=== PATIENT | female | born 1980 | race Caucasian/White ===

== ENCOUNTER 2021-01-27 11:14 | Outpatient (CLI) | payer MEDICAID ==
[2021-01-27] MEDS ORDERED: NO HOME MEDS (11:56)
[2021-01-27 12:27] LABS: BASOPHILS # (AUTO) 0.1 X10'3 (0-0.2); MEAN CORPUSCULAR HEMOGLOBIN 27.6 PG (27.0-31.0); MEAN PLATELET VOLUME 8.3 FL (7.4-10.4); MONOCYTES # (AUTO) 0.6 X10'3 (0-0.9); PRE OP PLATELET COUNT 312 X10'3 (140-440); RED CELL DISTRIBUTION WIDTH 14.3 % (11.5-14.5)
[2021-01-27 12:28] LABS: EOSINOPHILS # (AUTO) 0.1 X10'3 (0-0.9); EOSINOPHILS % (AUTO) 0.9 % (0-6); LYMPHOCYTES # (AUTO) 1.9 X10'3 (1.1-4.8); LYMPHOCYTES % (AUTO) 30.7 % (21-51); MEAN CORPUSCULAR HGB CONC 32.8 g/dL (33.0-36.5); MEAN CORPUSCULAR VOLUME 84.2 FL (78-98); MONOCYTES % (AUTO) 9.3 % (2-12); NEUTROPHILS # (AUTO) 3.4 X10'3 (1.8-7.7); NEUTROPHILS % (AUTO) 57.1 % (42-75); PRE OP HEMATOCRIT 39.1 % (35.0-45.0); PRE OP HEMOGLOBIN 12.8 g/dL (12.0-16.0); RED BLOOD COUNT 4.65 X10'6 (4.20-5.60)
[2021-01-27 12:41] LABS: ALBUMIN 4.1 G/DL (3.4-5.0); ALBUMIN/GLOBULIN RATIO 1.2 (1.1-1.5); ALKALINE PHOSPHATASE 57 IU/L (46-116); BLOOD UREA NITROGEN 15 MG/DL (7-18); CALCIUM 8.8 MG/DL (8.5-10.1); CHLORIDE 106 MMOL/L (99-107); CREATININE 0.79 MG/DL (0.40-0.90); PRE OP ALT 24 U/L (30-65); PRE OP ANION GAP 11 (8-16); PRE OP AST 25 U/L (10-37); PRE OP BILIRUB, TOTAL 0.3 MG/DL (0.0-1.0); PRE OP GLUCOSE 96 MG/DL (70-104); PRE OP POTASSIUM 3.7 MMOL/L (3.4-5.1); PRE OP SODIUM 143 MMOL/L (135-145); TOTAL CARBON DIOXIDE 26.2 MMOL/L (24-32); TOTAL PROTEIN 7.4 G/DL (6.4-8.2); eGFR 80 ML/MIN
== END 2021-01-27 23:59 | disposition home or self-care (01) ==
LOC: PRE-OP 11:14 → EDSTATUS 02-03 12:30
PROVIDERS: ATTEND Orthopaedic Surgery
DX: U07.1 COVID-19 (principal)
CPT/HCPCS: 36415; 80053; 85025; U0003; U0005

== ENCOUNTER 2021-07-07 13:21 | Day surgery (SDC) | payer MEDICAID ==
[2021-06-30 12:30] LABS: BASOPHILS # (AUTO) 0.1 X10'3 (0-0.2); EOSINOPHILS # (AUTO) 0.1 X10'3 (0-0.9); LYMPHOCYTES # (AUTO) 1.7 X10'3 (1.1-4.8); MONOCYTES # (AUTO) 0.6 X10'3 (0-0.9); PRE OP HEMATOCRIT 40.5 % (35.0-45.0)
[2021-06-30 12:31] LABS: LYMPHOCYTES % (AUTO) 28.3 % (21-51); MEAN CORPUSCULAR HEMOGLOBIN 26.7 PG (27.0-31.0); MEAN CORPUSCULAR HGB CONC 32.4 g/dL (33.0-36.5); MEAN CORPUSCULAR VOLUME 82.4 FL (78-98); MEAN PLATELET VOLUME 8.7 FL (7.4-10.4); MONOCYTES % (AUTO) 10.1 % (2-12); NEUTROPHILS # (AUTO) 3.5 X10'3 (1.8-7.7); NEUTROPHILS % (AUTO) 58.6 % (42-75); PRE OP HEMOGLOBIN 13.1 g/dL (12.0-16.0); PRE OP PLATELET COUNT 296 X10'3 (140-440); RED BLOOD COUNT 4.92 X10'6 (4.20-5.60); RED CELL DISTRIBUTION WIDTH 15.4 % (11.5-14.5)
[2021-06-30 12:45] LABS: HCG SERUM QL NEGATIVE
[2021-06-30 12:52] LABS: ALBUMIN 4.2 G/DL (3.4-5.0); ALBUMIN/GLOBULIN RATIO 1.3 (1.1-1.5); ALKALINE PHOSPHATASE 67 IU/L (46-116); BLOOD UREA NITROGEN 17 MG/DL (7-18); BUN/CREATININE RATIO 18.7 (6.6-38.0); CALCIUM 9.8 MG/DL (8.5-10.1); CHLORIDE 108 MMOL/L (99-107); CREATININE 0.91 MG/DL (0.40-0.90); PRE OP ALT 21 U/L (30-65); PRE OP ANION GAP 8 (8-16); PRE OP AST 25 U/L (10-37); PRE OP BILIRUB, TOTAL 0.3 MG/DL (0.0-1.0); PRE OP GLUCOSE 80 MG/DL (70-104); PRE OP SODIUM 145 MMOL/L (135-145); TOTAL CARBON DIOXIDE 28.7 MMOL/L (24-32); TOTAL PROTEIN 7.5 G/DL (6.4-8.2); eGFR 68 ML/MIN
[~2021-07-07] VITALS: Ht 167.6 cm; Wt 68.6 kg
[~2021-07-07 13:21] MED LIST: NO HOME MEDS; cefazolin/dext.iso 2gm/100ml 100 ML IV ONE; famotidine 20mg tablet PO ONE; ringers solution, lacted 1,000 ML IV SCH
[2021-07-07 14:15] VITALS: BP 130/75
[2021-07-07] MEDS ORDERED: methylPREDNISolone sod succ 125mg/2ml vial ONE ×2 (15:16→16:23)
[2021-07-07] MEDS ORDERED: BUPIVAcaine 0.5% inj/PF 30 ML ONE (15:16)
[2021-07-07] MEDS ORDERED: fentaNYL/PF 50MCG/1 ML 2ML syringe ONE (15:53)
[2021-07-07] MEDS ORDERED: midazolam 1 mg/ML 2ml injection ONE (15:53)
[2021-07-07] MEDS ORDERED: propofol inj 20 ML IV ONE (16:30)
[2021-07-07 16:41] VITALS: BP 106/77
--- NOTE | 2021-07-07 16:41 | NUR ---
Received from OR via , accompanied by Anesthesiologist DR DHILLON and report given by Anesthesiolgist. AWAKE AND CHACHO PAIN. VITALS STABLE. DRESSING DI.
[2021-07-07 16:51] VITALS: BP 110/78
[2021-07-07 17:01] VITALS: BP 113/82
--- NOTE | 2021-07-07 17:21 | NUR ---
AWAKE AND ORIENTED. VITALS STABLE. SPLINT DI. CHACHO PAIN. HOME WITH HER SPOUSE AT THIS TIME.
== END 2021-07-07 17:21 | disposition home or self-care (01) ==
LOC: PAS 13:21
PROVIDERS: ATTEND Orthopaedic Surgery
DX: G56.01 Carpal tunnel syndrome, right upper limb (principal); G56.21 Lesion of ulnar nerve, right upper limb; Z20.822 Contact with and (suspected) exposure to COVID-19; E66.8 Other obesity; Z68.26 Body mass index [BMI] 26.0-26.9, adult; Z72.89 Other problems related to lifestyle; Z79.899 Other long term (current) drug therapy; Z85.3 Personal history of malignant neoplasm of breast; Z98.890 Other specified postprocedural states; Z90.13 Acquired absence of bilateral breasts and nipples
CPT/HCPCS: 36415; 64719; 64721; 80053; 82948; 84703; 85025; J2250; J2704; J2930; J3010; U0003; U0005; Z7506; Z7512; A4215; A4565; A6250; A6455; A7000; J7120

== ENCOUNTER 2023-05-09 12:58 | Outpatient (CLI) | payer MEDICAID ==
[~2023-05-09 12:58] MED LIST changes: -cefazolin/dext.iso 2gm/100ml 100 ML IV ONE; -famotidine 20mg tablet PO ONE; -ringers solution, lacted 1,000 ML IV SCH
[2023-05-09 13:55] LABS: BASOPHILS # (AUTO) 0.1 X10'3 (0-0.2); EOSINOPHILS # (AUTO) 0.1 X10'3 (0-0.9); LYMPHOCYTES # (AUTO) 1.7 X10'3 (1.1-4.8); MEAN CORPUSCULAR VOLUME 82.7 FL (78-98); MONOCYTES # (AUTO) 0.4 X10'3 (0-0.9)
[2023-05-09 13:57] LABS: MEAN CORPUSCULAR HEMOGLOBIN 27.4 PG (27.0-31.0); MEAN CORPUSCULAR HGB CONC 33.1 g/dL (33.0-36.5); MEAN PLATELET VOLUME 8.9 FL (7.4-10.4); PRE OP HEMOGLOBIN 13.2 g/dL (12.0-16.0); PRE OP PLATELET COUNT 262 X10'3 (140-440); RED BLOOD COUNT 4.84 X10'6 (4.20-5.60); RED CELL DISTRIBUTION WIDTH 15.1 % (11.5-14.5)
[2023-05-09 14:08] LABS: ALBUMIN 4.2 G/DL (3.4-5.0); ALBUMIN/GLOBULIN RATIO 1.2 (1.1-1.5); ALKALINE PHOSPHATASE 67 IU/L (46-116); BLOOD UREA NITROGEN 16 MG/DL (7-18); BUN/CREATININE RATIO 19.3 (10.0-20.0); CALCIUM 9.6 MG/DL (8.5-10.1); CHLORIDE 104 MMOL/L (99-107); CREATININE 0.83 MG/DL (0.40-0.90); PRE OP ALT 22 U/L (30-65); PRE OP ANION GAP 10 (8-16); PRE OP AST 27 U/L (10-37); PRE OP BILIRUB, TOTAL 0.3 MG/DL (0.0-1.0); PRE OP GLUCOSE 112 MG/DL (70-104); PRE OP POTASSIUM 3.8 MMOL/L (3.4-5.1); PRE OP SODIUM 141 MMOL/L (135-145); TOTAL CARBON DIOXIDE 27.3 MMOL/L (24-32); TOTAL PROTEIN 7.6 G/DL (6.4-8.2); eGFR 75 ML/MIN
[2023-05-09 14:43] LABS: LYMPHOCYTES % (AUTO) 32 % (21-51); MONOCYTES % (AUTO) 7 % (2-12); NEUTROPHILS % (AUTO) 59 % (42-75)
[2023-05-09] MEDS ORDERED: [UNRECOGNIZED DRUG - OTHER] (16:21)
[2023-05-09] MEDS ORDERED: BIOTIN (16:21)
[2023-05-09] MEDS ORDERED: MULT-1085 PO (16:21)
== END 2023-05-09 23:59 | disposition home or self-care (01) ==
LOC: LAB 12:58 → EDSTATUS 05-14 09:45
PROVIDERS: ATTEND Surgery
DX: Z01.812 Encounter for preprocedural laboratory examination (principal); C50.912 Malignant neoplasm of unspecified site of left female breast
CPT/HCPCS: 80053; 85025; 85610; 85730

== ENCOUNTER 2023-10-29 11:18 | Day surgery (SDC) | payer BC ==
[2023-10-26 09:48] LABS: MEAN CORPUSCULAR HEMOGLOBIN 26.4 PG (27.0-31.0); MEAN CORPUSCULAR HGB CONC 32.6 g/dL (33.0-36.5); MEAN PLATELET VOLUME 8.1 FL (7.4-10.4); PRE OP HEMATOCRIT 37.6 % (35.0-45.0); PRE OP HEMOGLOBIN 12.2 g/dL (12.0-16.0); PRE OP PLATELET COUNT 340 X10'3 (140-440); PRE OP WHITE BLOOD COUNT 4.1 10'3 (4.8-10.8); RED BLOOD COUNT 4.64 X10'6 (4.20-5.60); RED CELL DISTRIBUTION WIDTH 15.1 % (11.5-14.5)
[2023-10-26 09:52] LABS: ALBUMIN/GLOBULIN RATIO 1.2 (1.1-1.5); ALKALINE PHOSPHATASE 53 IU/L (46-116); BLOOD UREA NITROGEN 10 MG/DL (7-18); BUN/CREATININE RATIO 13.5 (10.0-20.0); CALCIUM 9.4 MG/DL (8.5-10.1); CHLORIDE 103 MMOL/L (99-107); CREATININE 0.74 MG/DL (0.40-0.90); PRE OP ALT 19 U/L (30-65); PRE OP ANION GAP 9 (8-16); PRE OP AST 23 U/L (10-37); PRE OP BILIRUB, TOTAL 0.3 MG/DL (0.0-1.0); PRE OP GLUCOSE 105 MG/DL (70-104); PRE OP POTASSIUM 3.9 MMOL/L (3.4-5.1); PRE OP SODIUM 138 MMOL/L (135-145); TOTAL CARBON DIOXIDE 26.3 MMOL/L (24-32); TOTAL PROTEIN 7.4 G/DL (6.4-8.2); eGFR 85 ML/MIN
[2023-10-26 10:33] LABS: HCG SERUM QL NEGATIVE
[2023-10-26 11:07] LABS: TOTAL CELLS COUNTED 100
[2023-10-26 11:12] LABS: PLATELET ESTIMATE NORMAL
[2023-10-29] VITALS (11 sets, daily range): BP systolic 122–136; BP diastolic 75–90; PULSE 77–117; RESP 11–23; TEMP 98.7; O2SAT 97–100
[~2023-10-29] VITALS: Ht 160 cm; Wt 68.2 kg
[~2023-10-29 11:18] MED LIST changes: +BIOTIN; +MULT-1085 PO; -NO HOME MEDS; +[UNRECOGNIZED DRUG - OTHER]; +cefazolin 2gm/D5W 100mL 100 ML IV ONE; +famotidine 20mg tablet PO ONE; +ringers solution, lacted 1,000 ML IV SCH
[2023-10-29] MEDS ORDERED: scopolamine 1MG/72H patch 1 PATCH PATCH.TD.3 TD ONE (12:09)
[2023-10-29] MEDS ORDERED: scopolamine 1MG/72H patch 1 PATCH PATCH.TD.3 TD SCH (12:10)
[2023-10-29] MEDS ORDERED: BUPIVAcaine 2.5mg/ml inj 50ml vial (contains preservative) ONE (12:13)
[2023-10-29] MEDS ORDERED: ketorolac trometh. 30mg/ml inj. ONE (12:29)
[2023-10-29] MEDS ORDERED: sevoflurane 250ml liquid IH ONE (12:29)
[2023-10-29] MEDS ORDERED: propofol 10mg/ml 20ml vial IV ONE (12:29)
[2023-10-29] MEDS ORDERED: fentaNYL/PF 50MCG/1 ML 2ML syringe ONE (12:31)
[2023-10-29] MEDS ORDERED: midazolam 1 mg/ML 2ml injection ONE (12:31)
[2023-10-29] MEDS ORDERED: propofol inj 20 ML IV ONE (12:32)
[2023-10-29] MEDS ORDERED: dexamethasone sod phosphate 4mg/ml inj. ONE (12:46)
[2023-10-29] MEDS ORDERED: ondansetron/PF 4mg/2ml inj ONE (13:05)
[2023-10-29] MEDS ORDERED: BUPIVAcaine/PF 2.5 mg/ml (0.25%) 30ml vial IJ ONE (13:09)
[2023-10-29] MEDS ORDERED: acetaminophen 1,000mg/100ml IV 100 ML IV ONE (13:22)
[2023-10-29] MEDS ORDERED: ringers solution, lacted 1,000 ML IV SCH (13:25)
[2023-10-29] MEDS ORDERED: ondansetron/PF 4mg/2ml inj IV PRN (13:25)
[2023-10-29] MEDS ORDERED: morphine 4 MG/ML inj SYRINge IV PRN (13:25)
[2023-10-29] MEDS ORDERED: hydrALAZINE 20mg/ml inj. IV PRN (13:25)
[2023-10-29] MEDS ORDERED: morphine 2 MG/ML inj. syringe IV PRN (13:25)
[2023-10-29] MEDS ORDERED: labetalol 20mg/4ml (5mg/ml) syringe IV PRN (13:25)
[2023-10-29] MEDS ORDERED: fentaNYL/PF 50MCG/1 ML 2ML syringe IV PRN ×2 (13:25)
== END 2023-10-29 16:06 | disposition home or self-care (01) ==
LOC: PAS 11:18
PROVIDERS: ATTEND Surgery
DX: C50.912 Malignant neoplasm of unspecified site of left female breast (principal); D64.9 Anemia, unspecified; G89.29 Other chronic pain; Z98.890 Other specified postprocedural states; Z79.899 Other long term (current) drug therapy; Z72.89 Other problems related to lifestyle; Z90.13 Acquired absence of bilateral breasts and nipples
CPT/HCPCS: 19302; 80053; 82948; 84703; 85025; J0131; J0690; J1100; J1885; J2250; J2405; J2704; J3010; J3490; J7030; J7120; Z7506; Z7508; Z7512; 85007; A4215; A4618; A6449; A7000

== ENCOUNTER 2024-06-27 10:43 | Day surgery (SDC) | payer BC ==
[2024-06-23 14:54] LABS: ALBUMIN 4.3 G/DL (3.4-5.0); ALBUMIN/GLOBULIN RATIO 1.3 (1.1-1.5); ALKALINE PHOSPHATASE 45 IU/L (46-116); BLOOD UREA NITROGEN 12 MG/DL (7-18); BUN/CREATININE RATIO 16.7 (10.0-20.0); CALCIUM 9.8 MG/DL (8.5-10.1); CHLORIDE 108 MMOL/L (99-107); CREATININE 0.72 MG/DL (0.40-0.90); PRE OP ALT 27 U/L (30-65); PRE OP ANION GAP 8 (8-16); PRE OP AST 23 U/L (10-37); PRE OP BILIRUB, TOTAL 0.4 MG/DL (0.0-1.0); PRE OP GLUCOSE 97 MG/DL (70-104); PRE OP POTASSIUM 4.3 MMOL/L (3.4-5.1); PRE OP SODIUM 144 MMOL/L (135-145); TOTAL CARBON DIOXIDE 28.5 MMOL/L (24-32); TOTAL PROTEIN 7.5 G/DL (6.4-8.2); eGFR 88 ML/MIN
[2024-06-23 15:01] LABS: HCG SERUM QL NEGATIVE
[2024-06-23 15:04] LABS: BASOPHILS # (AUTO) 0.1 X10'3 (0-0.2); LYMPHOCYTES # (AUTO) 1.1 X10'3 (1.1-4.8); MEAN CORPUSCULAR HGB CONC 33.4 g/dL (33.0-36.5); MEAN CORPUSCULAR VOLUME 87.2 FL (78-98); MONOCYTES # (AUTO) 0.5 X10'3 (0-0.9); NEUTROPHILS # (AUTO) 1.7 X10'3 (1.8-7.7); NEUTROPHILS % (AUTO) 49.9 % (42-75); PRE OP HEMATOCRIT 39.1 % (35.0-45.0); PRE OP HEMOGLOBIN 13.1 g/dL (12.0-16.0); PRE OP WHITE BLOOD COUNT 3.4 10'3 (4.8-10.8); RED BLOOD COUNT 4.48 X10'6 (4.20-5.60)
[2024-06-23 15:06] LABS: BASOPHILS % (AUTO) 3.6 % (0-1); EOSINOPHILS % (AUTO) 0.9 % (0-6); LYMPHOCYTES % (AUTO) 32.1 % (21-51); MEAN CORPUSCULAR HEMOGLOBIN 29.2 PG (27.0-31.0); MEAN PLATELET VOLUME 8.4 FL (7.4-10.4); MONOCYTES % (AUTO) 13.5 % (2-12); PRE OP PLATELET COUNT 276 X10'3 (140-440)
[2024-06-27] VITALS (13 sets, daily range): BP systolic 123–143; BP diastolic 80–91; PULSE 74–89; RESP 12–18; TEMP 98.4; O2SAT 97–100
[~2024-06-27] VITALS: Ht 160 cm; Wt 65.8 kg
[~2024-06-27 10:43] MED LIST changes: -BIOTIN; +CALC-336 PO; +CALC500C6 PO; +COLLAGEN PO; +CYAN50007 PO; +ERGO500041 PO; +FERR236T3 PO; +FOLI0.4T14 PO; +HYAL60CA PO; -MULT-1085 PO; +NEUPHOSK PO; +NIAC50TA PO; +OMEG10006 PO; +PHYT500T PO; +RIBO25TA PO; +THIA50TA10 PO; +VITA800012 PO; +VITAMIN C; +VITE1000C PO; -[UNRECOGNIZED DRUG - OTHER]; +[UNRECOGNIZED DRUG - OTHER] PO; -cefazolin 2gm/D5W 100mL 100 ML IV ONE; -famotidine 20mg tablet PO ONE
[2024-06-27] MEDS: famotidine 20mg tablet PO ONE (11:12)
[2024-06-27] MEDS: cefazolin 2gm/D5W 100mL 100 ML IV ONE (11:12)
[2024-06-27] MEDS ORDERED: ondansetron/PF 4mg/2ml inj IV PRN (11:40)
[2024-06-27] MEDS ORDERED: proCHLORperazine 10 MG/2 ml inj IV PRN (11:40)
[2024-06-27] MEDS ORDERED: morphine 2 MG/ML inj. syringe IV PRN (11:40)
[2024-06-27] MEDS ORDERED: ringers solution, lacted 1,000 ML IV SCH (11:40)
[2024-06-27] MEDS ORDERED: labetalol 20mg/4ml (5mg/ml) syringe IV PRN (11:40)
[2024-06-27] MEDS ORDERED: HYDROmorphone/PF 0.2 MG/ML SYRINGE IV PRN ×2 (11:40)
[2024-06-27] MEDS ORDERED: morphine 4 MG/ML inj SYRINge IV PRN (11:40)
[2024-06-27] MEDS ORDERED: hydrALAZINE 20mg/ml inj. IV PRN (11:40)
[2024-06-27] MEDS ORDERED: acetaminophen 1,000mg/100ml IV 100 ML IV ONE (11:40)
[2024-06-27] MEDS ORDERED: BUPIVAcaine/PF 2.5mg/ml (0.25%) 10ml vial ONE (12:30)
[2024-06-27] MEDS ORDERED: LIDOcaine 1% (10mg/ml)w/preservative inj. 20ml MDV ONE (12:30)
[2024-06-27] MEDS ORDERED: sevoflurane 250ml liquid IH ONE (13:01)
[2024-06-27] MEDS ORDERED: fentaNYL/PF 50MCG/1 ML 2ML syringe ONE (13:09)
[2024-06-27] MEDS ORDERED: propofol inj 20 ML IV ONE (13:51)
[2024-06-27] MEDS ORDERED: LIDOcaine 2% (20mg/ml) 5ml vial ONE (13:51)
[2024-06-27] MEDS ORDERED: 0.9 % SODIUM CHLORIDE 10 ML VIAL ONE (13:51)
[2024-06-27] MEDS ORDERED: midazolam 1 mg/ML 2ml injection ONE (13:51)
[2024-06-27] MEDS ORDERED: dexamethasone sod phosphate 4mg/ml inj. ONE (13:51)
[2024-06-27] MEDS ORDERED: ondansetron/PF 4mg/2ml inj ONE (13:51)
[2024-06-27] MEDS ORDERED: ePHEDrine 50MG/ML INJ. ONE (13:52)
[2024-06-27] MEDS: BUPIVAcaine 2.5mg/ml inj 50ml vial (contains preservative) SQ ONE (14:10)
== END 2024-06-27 16:02 | disposition home or self-care (01) ==
LOC: PAS 10:43
PROVIDERS: ATTEND Surgery
DX: C50.412 Malignant neoplasm of upper-outer quadrant of left female breast (principal); Z79.891 Long term (current) use of opiate analgesic; Z79.899 Other long term (current) drug therapy; Z98.891 History of uterine scar from previous surgery; Z98.890 Other specified postprocedural states
CPT/HCPCS: 19301; 36415; 80053; 82948; 84703; 85025; J0690; J1100; J2250; J2405; J2704; J3010; J3490; J7030; J7120; Z7506; Z7508; Z7512; A4215; A4618; A6449; A7000